=== PATIENT | male | born 1965 | race Caucasian/White ===

== ENCOUNTER 2016-09-18 14:43 | Emergency (ER) | payer OTHER ==
[~2016-09-18 14:43] MED LIST: MARIJUANA CARD; OMEPRAZOLE20 MG PO; PEPCID40 MG PO
[2016-09-18] MEDS ORDERED: ROBAXIN-750750 MG PO (19:24)
== END 2016-09-18 19:40 | disposition home or self-care (01) ==
LOC: ED 14:43
DX: M54.30 Sciatica, unspecified side (principal); R20.2 Paresthesia of skin
CPT/HCPCS: 99283